=== PATIENT | male | born 1975 | race Caucasian/White ===

== ENCOUNTER → 2023-10-25 06:28 | Day surgery (SDC) | payer BC, SELFPAY | LOC: GI 06:28 | PROVIDERS: ATTENDING PHYSICIAN Internal Medicine Gastroenterology; FAMILY PHYSICIAN Family Medicine | DX: Z12.11 Encounter for screening for malignant neoplasm of colon (principal); D12.2 Benign neoplasm of ascending colon; D12.4 Benign neoplasm of descending colon; D12.7 Benign neoplasm of rectosigmoid junction; K63.5 Polyp of colon; K62.1 Rectal polyp; K64.0 First degree hemorrhoids | CPT/HCPCS: 45385; 45380; 88305 ==